=== PATIENT | female | born 1970 | race Caucasian/White ===

== ENCOUNTER 2016-10-11 16:25 | Emergency (ER) | payer OTHER | END 2016-10-11 17:52 | disposition home or self-care (01) | LOC: ER 16:25 | DX: S50.12XA Contusion of left forearm, initial encounter (principal); M54.5 Low back pain; M25.571 Pain in right ankle and joints of right foot; M25.572 Pain in left ankle and joints of left foot; W10.9XXA Fall (on) (from) unspecified stairs and steps, initial encounter; I50.9 Heart failure, unspecified; Z90.710 Acquired absence of both cervix and uterus; Z79.4 Long term (current) use of insulin; Z79.899 Other long term (current) drug therapy; Z88.5 Allergy status to narcotic agent | CPT/HCPCS: 72100; 73090; 73610; 99070; 99283-25 ==

== ENCOUNTER 2016-12-04 22:26 | Emergency (ER) | payer OTHER | END 2016-12-05 00:10 | disposition home or self-care (01) | LOC: ER 22:26 | DX: M54.5 Low back pain (principal); M54.6 Pain in thoracic spine; M51.36 Other intervertebral disc degeneration, lumbar region; M51.34 Other intervertebral disc degeneration, thoracic region; F17.210 Nicotine dependence, cigarettes, uncomplicated; X50.0XXA Overexertion from strenuous movement or load, initial encounter; Y92.009 Unspecified place in unspecified non-institutional (private) residence as the place of occurrence of the external cause | CPT/HCPCS: 72128; 72131; 99283-25 ==

== ENCOUNTER 2016-12-30 17:14 | Emergency (ER) | payer OTHER | END 2016-12-30 19:21 | disposition home or self-care (01) | LOC: ER 17:14 | DX: M54.5 Low back pain (principal); M51.36 Other intervertebral disc degeneration, lumbar region; F17.210 Nicotine dependence, cigarettes, uncomplicated; Z88.5 Allergy status to narcotic agent; Z79.4 Long term (current) use of insulin; Z79.899 Other long term (current) drug therapy | CPT/HCPCS: 72128; 72131; 99283-25 ==